=== PATIENT | female | born 1965 | race Caucasian/White ===

== ENCOUNTER 2018-04-06 10:02 | Emergency (ER) | payer MEDICAID ==
[2018-04-06] MEDS: KETOROLAC 15 MG INJ IM (10:37)
== END 2018-04-06 10:46 | disposition home or self-care (01) ==
LOC: FTE 10:02
DX: R51 Headache (principal); M62.838 Other muscle spasm; E11.9 Type 2 diabetes mellitus without complications; I10 Essential (primary) hypertension; Z79.82 Long term (current) use of aspirin; Z79.84 Long term (current) use of oral hypoglycemic drugs
CPT/HCPCS: 96372; 99284-25

== ENCOUNTER 2018-05-11 21:25 | Emergency (ER) | payer MEDICAID ==
[2018-05-12] MEDS: DIAZEPAM 5 MG TAB PO (00:52)
[2018-05-12] MEDS: HYDROCODONE/APAP (5/325) TAB PO (00:52)
== END 2018-05-12 06:22 | disposition home or self-care (01) ==
LOC: FTE 21:25
DX: M25.561 Pain in right knee (principal); M25.562 Pain in left knee; M25.571 Pain in right ankle and joints of right foot; M25.572 Pain in left ankle and joints of left foot; E11.9 Type 2 diabetes mellitus without complications; I10 Essential (primary) hypertension; Z79.82 Long term (current) use of aspirin; Z79.84 Long term (current) use of oral hypoglycemic drugs
CPT/HCPCS: 73562; 73590; 73610; 73610-RT; 84703; 99284-25

== ENCOUNTER 2018-11-21 13:59 | Emergency (ER) | payer MEDICAID ==
[2018-11-21] MEDS: IBUPROFEN 600 MG TAB PO (16:31)
[2018-11-21] MEDS: LIDOCAINE 1% (MDV) 20 ML INJ SC (16:56)
== END 2018-11-21 17:45 | disposition home or self-care (01) ==
LOC: FTE 13:59
DX: L72.3 Sebaceous cyst (principal); I10 Essential (primary) hypertension; E11.9 Type 2 diabetes mellitus without complications; Z79.82 Long term (current) use of aspirin; Z79.84 Long term (current) use of oral hypoglycemic drugs
CPT/HCPCS: 10060; 82962; 99283-25